=== PATIENT | female | born 1970 | race Two or more races ===

== ENCOUNTER 2016-12-25 00:56 | Observation (INO) | payer SELFPAY ==
--- NOTE | 2016-12-25 01:23 | CPEKG ---
Heart Rate: 86 RR Interval: 698 P-R Interval: 160 QRSD Interval: 86 QT Interval: 368 QTC Interval: 440 P [place]: 22 QRS [place]: 30 T Wave [place]: -22 EKG Severity - ABNORMAL ECG - EKG Impression: SINUS RHYTHM EKG Impression: PROBABLE INFERIOR INFARCT, AGE INDETERMINATE Electronically Signed By: Karine Tiwari 25-Dec-2016 08:19:37
[2016-12-25] MEDS ORDERED: ASPIRIN 81 MG CHEWABLE TAB PO ONE ×2 (01:42→02:15)
--- NOTE | 2016-12-25 01:45 | EDPHY ---
H & P Stated Complaint: 2 DAYS TROUBLE BREATHING Time Seen by Provider: 12/25/16 01:17 HPI/ROS: Kyrgyz language line head waitress used HPI The patient presents with shortness of breath which began last night and has caused her some difficulty with sleeping. It is been fairly constant since it began more than 24 hours ago. She feels that she can't catch her breath. This is associated with general dizziness which she describes as lightheadedness and palpitations. She does describe epigastric pain without any hailey chest pain which is achy and moderate. She took her blood pressure medication which helped her symptoms a little bit, however they have persisted. She had a similar episode in August of 2016 which got better on its own while she was in [place]. She is also complaining of insomnia. REVIEW OF SYSTEMS Constitutional: No fever, no chills. Eyes: No discharge. ENT: No sore throat. Cardiovascular: See HPI Respiratory: No cough, no shortness of breath. Gastrointestinal: No abdominal pain, no vomiting. Genitourinary: No hematuria. Musculoskeletal: No back pain. Skin: No rashes. Neurological: No headache. PMHx: Hypertension, followed at [facility] Hx: No alcohol use PHYSICAL General Appearance: Alert, no distress Eyes: Pupils equal and round no pallor or injection ENT, Mouth: Mucous membranes moist Respiratory: There are no retractions, lungs are clear to auscultation Cardiovascular: Regular rate and rhythm Gastrointestinal: Abdomen is soft and non-tender, no masses, bowel sounds normal Neurological: A&O, moves all extremities Skin: Warm and dry, no rashes Musculoskeletal: Neck is supple non tender Extremities: symmetrical, full range of motion Psychiatric: Patient is oriented X 3, there is no agitation Source: Patient Exam Limitations: No limitations - Medical/Surgical History Hx Asthma: No Hx Chronic Respiratory Disease: No Hx Diabetes: No Hx Cardiac Disease: No Hx Renal Disease: No Hx Cirrhosis: No Hx Alcoholism: No Hx HIV/AIDS: No Hx Splenectomy or Spleen Trauma: No Other PMH: htn. c section - Social History Smoking Status: Never smoked Constitutional: Initial Vital Signs Temperature (C) 37.0 C 12/25/16 01:00 Heart Rate 88 12/25/16 01:00 Respiratory Rate 24 H 12/25/16 01:00 Blood Pressure 200/107 H 12/25/16 01:00 O2 Sat (%) 99 12/25/16 01:00 O2 Delivery Mode Nasal Cannula O2 (L/minute) 2 Allergies/Adverse Reactions: No Known Allergies Allergy (Verified 12/25/16 01:07) Home Medications: Medication Instructions Recorded Lisinopril 12/25/16 Medical Decision Making - Diagnostics EKG Interpretation: EKG: Complete interpretation has been separately recorded in the [email or web address] archive. Summary impression: Normal sinus rhythm, Q-waves in lead 3, no ST segment changes Imaging: Chest x-ray two views shows no acute findings, interpreted by me, radiology interpretation is pending. ED Course/Re-evaluation: The patient was monitored in the emergency room with no events on telemetry. Her symptoms mostly resolved here with mild residual shortness of breath. Her EKG showed Q-waves in 3, was otherwise normal with no ST segment changes. Her troponin was slightly elevated at 0.04. She was given a dose of aspirin. Because of this, I plan to admit her to the hospital for repeat troponin and further monitoring. I have discussed the case with the hospitalist Dr. Merrill and I have ordered her a bed in the PCU. Differential Diagnosis: This is a 46-year-old female with known hypertension who presents from home with about 1 day of shortness of breath associated with epigastric abdominal pain, palpitations and dizziness. On exam, she is hypertensive and the remainder of her exam is unremarkable. Differential diagnosis includes ACS, gastritis, GERD, less likely aortic dissection given no back pain. Less likely pulmonary embolism given normal oxygen saturation and no tachycardia with no risk factors. - Data Points Laboratory Results: Laboratory Results 12/25/16 01:28 12/25/16 01:28 12/25/16 01:28 WBC 8.83 10^3/uL (3.80-9.50) RBC 4.77 10^6/uL (4.18-5.33) Hgb 13.7 g/dL (12.6-16.3) Hct 40.9 % (38.0-47.0) MCV 85.7 fL (81.5-99.8) MCH 28.7 pg (27.9-34.1) MCHC 33.5 g/dL (32.4-36.7) RDW 13.5 % (11.5-15.2) Plt Count 306 10^3/uL (150-400) MPV 10.1 fL (8.7-11.7) Neut % (Auto) 42.1 % (39.3-74.2) Lymph % (Auto) 47.0 H % (15.0-45.0) [place] % (Auto) 7.1 % (4.5-13.0) Eos % (Auto) 3.1 % (0.6-7.6) Baso % (Auto) 0.6 % (0.3-1.7) Nucleat RBC Rel Count 0.0 % (0.0-0.2) Absolute Neuts (auto) 3.72 10^3/uL (1.70-6.50) Absolute Lymphs (auto) 4.15 H 10^3/uL (1.00-3.00) Absolute Monos (auto) 0.63 10^3/uL (0.30-0.80) Absolute Eos (auto) 0.27 10^3/uL (0.03-0.40) Absolute Basos (auto) 0.05 10^3/uL (0.02-0.10) Absolute Nucleated RBC 0.00 10^3/uL (0-0.01) Immature Gran % 0.1 % (0.0-1.1) Immature Gran # 0.01 10^3/uL (0.00-0.10) Sodium 141 mEq/L (134-144) Potassium 3.6 mEq/L (3.5-5.2) Chloride 109 mEq/L (97-110) Carbon Dioxide 19 L mEq/l (22-31) Anion Gap 13 mEq/L (8-16) BUN 11 mg/dL (7-23) Creatinine 0.8 mg/dL (0.6-1.0) Estimated GFR > 60 Glucose 97 mg/dL (70-100) Calcium 9.8 mg/dL (8.5-10.4) Total Bilirubin 0.3 mg/dL (0.1-1.4) Conjugated Bilirubin 0.3 mg/dL (0.0-0.5) Unconjugated Bilirubin 0.0 mg/dL (0.0-1.1) AST 27 IU/L (14-46) ALT 31 IU/L (9-52) Alkaline Phosphatase 89 IU/L (38-126) Troponin I 0.046 H ng/mL (0-0.034) Total Protein 7.5 g/dL (6.3-8.2) Albumin 4.1 g/dL (3.5-5.0) Lipase 112.0 IU/L (23-300) Medications Given: Discontinued Medications Aspirin (Aspirin) 324 mg PO EDNOW ONE Stop: 12/25/16 01:43 Last Admin: 12/25/16 01:51 Dose: 324 mg Aspirin (Aspirin) 324 mg PO EDNOW ONE Stop: 12/25/16 02:16 Last Admin: 12/25/16 02:25 Dose: Not Given Departure - Departure Disposition: [facility] Inpatient Acute Clinical Impression: Shortness of breath, Elevated troponin level Hypertension Qualifiers: Hypertension type: essential hypertension Qualifier Code: (I10) Essential ( primary) hypertension Condition: Fair
[2016-12-25 01:46] LABS: % IMMATURE GRANULYOCYTES 0.1 % (0.0-1.1); ABSOLUTE IMMATURE GRANULOCYTES 0.01 10^3/uL (0.00-0.10); ADD DIFF? NO; ADD MORPH? NO; ADD SCAN? NO; ATYPICAL LYMPHOCYTE FLAG 0 (0-99); FRAGMENT RBC FLAG 0 (0-99); HEMATOCRIT 40.9 % (38.0-47.0); HEMOGLOBIN 13.7 g/dL (12.6-16.3); LEFT SHIFT FLG 0 (0-99); LIPEMIA HEMOLYSIS FLAG 80 (0-99); MEAN CELL HEMOGLOBIN 28.7 pg (27.9-34.1); MEAN CELL HEMOGLOBIN CONCENTR. 33.5 g/dL (32.4-36.7); MEAN CELL VOLUME 85.7 fL (81.5-99.8); MEAN PLATELET VOLUME 10.1 fL (8.7-11.7); PLATELET CLUMPS FLAG 50 (0-99); PLATELET COUNT 306 10^3/uL (150-400); RED BLOOD CELL COUNT 4.77 10^6/uL (4.18-5.33); RED CELL DISTRIBUTION WIDTH 13.5 % (11.5-15.2)
[2016-12-25 01:54] LABS: ALANINE AMINOTRANSFERASE 31 IU/L (9-52); ALBUMIN 4.1 g/dL (3.5-5.0); ALKALINE PHOSPHATASE 89 IU/L (38-126); ANION GAP 13 mEq/L (8-16); ASPARTATE AMINOTRANSFERASE 27 IU/L (14-46); BILIRUBIN,TOTAL 0.3 mg/dL (0.1-1.4); BILIRUBIN-CONJUGATED 0.3 mg/dL (0.0-0.5); CALCIUM 9.8 mg/dL (8.5-10.4); CARBON DIOXIDE 19 mEq/l (22-31); CHLORIDE 109 mEq/L (97-110); CREATININE 0.8 mg/dL (0.6-1.0); GLOMERULAR FILTRATION RATE > 60; GLUCOSE 97 mg/dL (70-100); POTASSIUM 3.6 mEq/L (3.5-5.2); SODIUM 141 mEq/L (134-144); TOTAL PROTEIN 7.5 g/dL (6.3-8.2)
[2016-12-25 02:08] LABS: TROPONIN I 0.046 ng/mL (0-0.034)
[2016-12-25] MEDS ORDERED: HYDROCODONE/APAP 5/325 TAB PO PRN (03:36)
[2016-12-25] MEDS ORDERED: ACETAMINOPHEN 325 MG TAB PO PRN (03:36)
[2016-12-25] MEDS ORDERED: ONDANSETRON DISINTEGRATING 4 MG TAB PO PRN (03:36)
[2016-12-25] MEDS ORDERED: ONDANSETRON 4 MG/2 ML VIAL IVP PRN (03:36)
[2016-12-25] MEDS ORDERED: LORazepam 0.5 MG TAB PO PRN (03:36)
[2016-12-25] MEDS ORDERED: NITROGLYCERIN 0.4 MG BTL SL PRN (03:40)
[2016-12-25 04:05] LABS: COLOR PALE YELLOW; LEUKOCYTE ESTERASE,URINE NEGATIVE (NEGATIVE); NITRITE,URINE NEGATIVE (NEGATIVE)
[2016-12-25 04:18] LABS: BACTERIA TRACE /hpf (NONE SEEN)
[2016-12-25 04:32] LABS: WBC,URINE NONE SEEN /hpf (0-3)
--- NOTE | 2016-12-25 06:02 | PDGENHP ---
History and Physical - Chief Complaint chest pain - History of Present Illness Patient is a 46-year-old female with history of hypertension, anxiety disorder , insomnia presents to the ED complaining left-sided chest pressure. Patient states symptoms started this evening after dinner just prior to going to bed when she began to feel dizziness. dizziness was accompanied by nausea, diaphoresis and also left-sided chest pressure that radiated to the left shoulder. Patient attempted to lie down and go to sleep however symptoms persisted so she decided to come to the ED. She reports having this constellation of symptoms once before in 07/2016 when she was visiting family in [place]. At that time she was evaluated in the ER, was told she was not having a heart attack, but was recommended to get a stress test, which was not yet done. Currently she denies any recent fevers, chills, cough, shortness of breath, vomiting, diarrhea, dysuria. She does report orthopnea, describes insomnia due to anxiety when lying flat. On arrival to the ED patient was afebrile hemodynamically stable. Labs revealed normal CBC and BMP, however troponin was indeterminately elevated. EKG did not reveal any obvious ischemic changes. She was given aspirin and admitted to the hospital service for further management. History Information - Allergies/Home Medication List Allergies/Adverse Reactions: No Known Allergies Allergy (Verified 12/25/16 01:07) Home Medications: Lisinopril 12/25/16 [Last Taken Unknown] I have personally reviewed and updated: family history, medical history, social history, surgical history - Past Medical History Additional medical history: Hypertension. generalized anxiety. insomnia - Surgical History Additional surgical history: C sections - Family History Additional family history: M: HTN - Social History Smoking Status: Never smoked Alcohol Use: None Drug Use: None Additional social history: Patient is originally from [place], lives in [place] with her family. Review of Systems ROS: 10pt was reviewed & negative except for what was stated in HPI & below Physical Exam Temp Pulse Resp BP Pulse Ox 37.2 C 80 17 141/86 H 95 12/25/16 03:58 12/25/16 04:29 12/25/16 03:58 12/25/16 04:29 12/25/16 04:29 O2 (L/minute) 2 Constitutional: no apparent distress, appears nourished, not in pain, obese Eyes: PERRL, anicteric sclera, EOMI Ears, Nose, Mouth, Throat: moist mucous membranes, hearing normal, ears appear normal, no oral mucosal ulcers Cardiovascular: regular rate and rhythym, no murmur, rub, or gallop, pulses symmetric bilaterally, No JVD, No edema Peripheral Pulses: 2+: dorsalis-pedis (R), dorsalis-pedis (L) Respiratory: no respiratory distress, no rales or rhonchi, clear to auscultation Gastrointestinal: normoactive bowel sounds, soft, non-tender abdomen, no palpable masses, No guarding, No rebound, No distension Genitourinary: no bladder fullness, no bladder tenderness Skin: warm, normal color, no rashes or abrasions, no fluctuance, No mottled Musculoskeletal: full muscle strength, no muscle tenderness, normal joint ROM, no joint effusions Neurologic: AAOx3, sensation intact bilaterally, CN II-XII Intact, No weakness, No numbness Psychiatric: interacting appropriately, not anxious, not encephalopathic, thought process linear Lab Data & Imaging Review 12/25/16 01:28 12/25/16 01:28 WBC 8.83 10^3/uL (3.80-9.50) 12/25/16 01:28 RBC 4.77 10^6/uL (4.18-5.33) 12/25/16 01:28 Hgb 13.7 g/dL (12.6-16.3) 12/25/16 01:28 Hct 40.9 % (38.0-47.0) 12/25/16 01:28 MCV 85.7 fL (81.5-99.8) 12/25/16 01:28 MCH 28.7 pg (27.9-34.1) 12/25/16 01:28 MCHC 33.5 g/dL (32.4-36.7) 12/25/16 01:28 RDW 13.5 % (11.5-15.2) 12/25/16 01:28 Plt Count 306 10^3/uL (150-400) 12/25/16 01:28 MPV 10.1 fL (8.7-11.7) 12/25/16 01: Neut % (Auto) 42.1 % (39.3-74.2) 12/25/16 01:28 Lymph % (Auto) 47.0 % (15.0-45.0) H 12/25/16 01:28 [place] % (Auto) 7.1 % (4.5-13.0) 12/25/16 01:28 Eos % (Auto) 3.1 % (0.6-7.6) 12/25/16 01:28 Baso % (Auto) 0.6 % (0.3-1.7) 12/25/16 01:28 Nucleat RBC Rel Count 0.0 % (0.0-0.2) 12/25/16 01:28 Absolute Neuts (auto) 3.72 10^3/uL (1.70-6.50) 12/25/16 01:28 Absolute Lymphs (auto) 4.15 10^3/uL (1.00-3.00) H 12/25/16 01:28 Absolute Monos (auto) 0.63 10^3/uL (0.30-0.80) 12/25/16 01:28 Absolute Eos (auto) 0.27 10^3/uL (0.03-0.40) 12/25/16 01:28 Absolute Basos (auto) 0.05 10^3/uL (0.02-0.10) 12/25/16 01:28 Absolute Nucleated RBC 0.00 10^3/uL (0-0.01) 12/25/16 01:28 Immature Gran % 0.1 % (0.0-1.1) 12/25/16 01:28 Immature Gran # 0.01 10^3/uL (0.00-0.10) 12/25/16 01:28 Sodium 141 mEq/L (134-144) 12/25/16 01:28 Potassium 3.6 mEq/L (3.5-5.2) 12/25/16 01:28 Chloride 109 mEq/L (97-110) 12/25/16 01:28 Carbon Dioxide 19 mEq/l (22-31) L 12/25/16 01:28 Anion Gap 13 mEq/L (8-16) 12/25/16 01:28 BUN 11 mg/dL (7-23) 12/25/16 01:28 Creatinine 0.8 mg/dL (0.6-1.0) 12/25/16 01:28 Estimated GFR > 60 12/25/16 01:28 Glucose 97 mg/dL (70-100) 12/25/16 01:28 Calcium 9.8 mg/dL (8.5-10.4) 12/25/16 01:28 Total Bilirubin 0.3 mg/dL (0.1-1.4) 12/25/16 01:28 Conjugated Bilirubin 0.3 mg/dL (0.0-0.5) 12/25/16 01:28 Unconjugated Bilirubin 0.0 mg/dL (0.0-1.1) 12/25/16 01:28 AST 27 IU/L (14-46) 12/25/16 01:28 ALT 31 IU/L (9-52) 12/25/16 01:28 Alkaline Phosphatase 89 IU/L (38-126) 12/25/16 01:28 Troponin I 0.046 ng/mL (0-0.034) H 12/25/16 01:28 Total Protein 7.5 g/dL (6.3-8.2) 12/25/16 01:28 Albumin 4.1 g/dL (3.5-5.0) 12/25/16 01:28 Lipase 112.0 IU/L (23-300) 12/25/16 01:28 Urine Color PALE YELLOW 12/25/16 03:45 Urine Appearance CLEAR 12/25/16 03:45 Urine pH 5.0 (5.0-7.5) 12/25/16 03:45 Ur Specific [place] 1.003 (1.002-1.030) 12/25/16 03:45 Urine Protein NEGATIVE (NEGATIVE) 12/25/16 03:45 Urine Ketones NEGATIVE (NEGATIVE) 12/25/16 03:45 Urine Blood 1+ (NEGATIVE) H 12/25/16 03:45 Urine Nitrate NEGATIVE (NEGATIVE) 12/25/16 03:45 Urine Bilirubin NEGATIVE (NEGATIVE) 12/25/16 03:45 Urine Urobilinogen NEGATIVE EU (0.2-1.0) 12/25/16 03:45 Ur Leukocyte Esterase NEGATIVE (NEGATIVE) 12/25/16 03:45 Urine RBC 1-3 /hpf (0-3) 12/25/16 03:45 Urine WBC NONE SEEN /hpf (0-3) 12/25/16 03:45 Ur Epithelial Cells TRACE /lpf (NONE-1+) 12/25/16 03:45 Urine Bacteria TRACE /hpf (NONE SEEN) H 12/25/16 03:45 Hyaline Casts 1-5 /lpf (0-1) 12/25/16 03:45 Urine Glucose NEGATIVE (NEGATIVE) 12/25/16 03:45 Visualized and Interpreted Chest x-ray results: Yes Chest X-Ray results: no infiltrate, normal Visualized and Interpreted EKG results: Yes EKG Interpretation: Positive for: normal sinsus rhythm (inferior q and twi in III, aVF) Assessment & Plan Assessment: patient is a 46-year-old female with history of obesity, hypertension who presents to the ED complaining of left-sided chest pain associated with nausea and diaphoresis. ED evaluation reveals indeterminately elevated troponin, normal EKG. Plan: # chest pain Patient's cardiac risk factors include obesity, longstanding hypertension. Initial troponin mildly elevated and EKG with nonspecific inferior changes. on my evaluation patient was chest pain-free. Continue to trend troponin, serial EKGs and check TTE. If no obvious ischemic event, will obtain stress test. Cont aspirin daily, consider initiating b-nargis. # chronic hypertension BP elevated on presentation, will confirm and continue home meds. # dispo: admit as observation status for chest pain evaluation # gen: NPO for possible stress test DVT ppx: lovenox Full code
[2016-12-25 06:26] LABS: CHOLESTEROL 194 mg/dL (140-200); CHOLESTEROL/HDL RATIO 4.51 RATIO (1.00-4.44); HIGH DENSITY LIPOPROTEIN 43 mg/dL (40-95); LDL/HDL RATIO 2.98 RATIO (1.00-3.22); LOW DENSITY LIPOPROTEIN 128 mg/dL (70-100); NON-HIGH DENSITY LIPOPROTEIN 151 mg/dL (90-129); TRIGLYCERIDE 116 mg/dL (35-135); VERY LOW DENSITY LIPOPROTEINS 23 mg/dL (8-25)
[2016-12-25 06:38] LABS: CREATINE KINASE-MB FRACTION 0.58 ng/mL (0-3.19); TROPONIN I 0.042 ng/mL (0-0.034)
--- NOTE | 2016-12-25 08:33 | DX ---
Chest, PA and Lateral History: Chest pressure and dyspnea Comparison: CT abdomen and pelvis December 25, 2010 Findings: A round 1.4 cm calcification is present in the right upper quadrant and likely represents a gallstone. This was not present on CT scan December 25, 2010. Lungs are clear, without infiltrate or consolidation. Heart size and pulmonary vascularity are normal. There is no adenopathy or mass lesio n. There is no pleural effusion or pneumothorax. Bones are unremarkable for age. Oxygen tubing and EK G lead overlie the chest. Impression: 1. Normal chest. New cholelithiasis. 2. Previously demonstrated bilateral nephrolithiasis is not visible on this exam. Results discussed with Dr. Mcgovern at 8:29 AM
[2016-12-25] MEDS ORDERED: ENOXAPARIN 40 MG/0.4 ML SYR SC SCH (09:00)
[2016-12-25] MEDS ORDERED: ASPIRIN EC 81 MG TAB PO SCH (09:00)
[2016-12-25] MEDS ORDERED: REGADENOSON 0.4 MG/5 ML SYR IVP ONE (11:37)
--- NOTE | 2016-12-25 12:58 | CPR ---
[f rep st] NONINVASIVE CARDIAC PROCEDURE REPORT PROCEDURE: Exercise treadmill testing of exercise treadmill myocardial perfusion imaging study. INDICATION FOR PROCEDURE: Chest pressure, abnormal electrocardiogram. PRE: After obtaining informed consent, with Hungarian-speaking defensive driving instructor, patient placed on electrocardiogram. Initial EKG shows sinus rhythm with inverted T-waves in inferolateral leads. Patient denies any chest pain or shortness of breath at this time. Initial blood pressure 146/96. Patient's saturation 94% on room air. Patient denies symptoms suggesting of ischemia. STRESS: Patient was placed on exercise treadmill following standard Bassam protocol with the following findings: 1. Patient exercised for 5 minutes. 2. 6.4 METS. 3. She attained a heart rate of 169 beats per minute, which was 98% of her MPHR. 4. No significant ST shifts suggesting of ischemia at peak exercise. 5. SpO2 greater than 90% throughout the procedure. 6. BP response, rest 146/96, peak 174/100. 7. Patient noted to have occasional premature ventricular contraction during stress, but no other malignant arrhythmias. 8. Test was stopped due to maximum effort. 9. Chou treadmill score of 5, placing patient in low risk category. RECOVERY: Patient remained in recovery for 5 minutes, no further premature ventricular contractions happening, and she denied of any symptoms, EKG returned to baseline, final blood pressure was 140/100, back to baseline pressure. Vital signs are stable. Patient taken to Nuclear Medicine for post stress MPI imaging. IMPRESSION: A 46-year-old female reporting chest pressure with abnormal electrocardiogram, undergoing ETT/MPI study for further evaluation of ischemia, the patient with mildly poor exercise effort, normally able to go 5 minutes on treadmill. Denied chest pressure, and had no significant ST shift at peak exercise. The patient noted to be mildly hypertensive, diastolic throughout the testing. Vital signs stable, MPI results pending. Question diastolic dysfunction. /[id number]/MODL MTDD
--- NOTE | 2016-12-25 12:58 | NM ---
Nuclear Medicine Myocardial Perfusion Stress and Rest Imaging History: Chest pain. Technique: Stress imaging performed with the intravenous administration of 25.9 mCi of technetium 99 m labeled sestamibi after the patient was exercised to stage I exercise with a peak heart rate of 168 bpm, which is 98% of maximum predicted. Images are reviewed on the independent nuclear medicine work station, computer analysis is performed. Findings: The left ventricular ejection fraction is 72 %. Stress imaging does not demonstrate a d efect to suggest ischemia or infarct. No focal wall motion abnormalities. Impression: 1. Normal left ventricular ejection fraction of 72 %. 2. No focal wall motion abnormalities. 3. No evidence for ischemia or infarct. Results called to Dr. Jim Rush at 12:54 PM.
--- NOTE | 2016-12-25 13:43 | ECHO ---
[id number] + + [address] : : [place] [id number] : : [phone] + + Adult Echocardiographic Report + + :Name: Dale BRARETT Date: 12/25/2016 09:21 AM BP: 136/77 mmHg : : Hospital Admission Number: [id number] : :: 1970 Gender: Female Height: 60 in : :Age: 46 yrs Race: [facility] Weight: 170 lb : :Reason For Study: r/o cardiomyopathy : : BSA: 1.7 meters2: :History: chest pain orthopnea htn : + + MMode/2D Measurements & Calculations IVSd: 0.76 cm RVDd: 2.8 cm FS: 37.8 % Ao root diam: LVPWd: 0.77 cm LVIDd: 4.3 cm EDV(Teich): 2.8 cm LVIDs: 2.7 cm 84.1 ml ESV(Teich): 26.8 ml EF(Teich): 68.2 % LVLd ap4: 8.9 cm SV(MOD-sp4): EDV(MOD-sp4): 103.0 ml 135.0 ml LVLs ap4: 7.5 cm ESV(MOD-sp4): 32.0 ml EF(MOD-sp4): 76.3 % Normal Measurement Values: + + :LVIDd (3.5-5.7cm) IVSd (0.6-1.1cm) LVPWd (0.6-1.1cm) Aortic Root (2.0-3.7cm)Left Atrium (1.5-4.0cm): :LV Vol(d) (76-115ml) LV Vol(s) (29-48ml) Ejec Fraction (50-65%)PV James (0.6- 1.2m/s) TV James (0.4-1.0m/s) : :MV E James (0.8-1.0m/s)MV A James (0.3-1.0m/s)LVOT James (0.7-1.2m/s) Asc Ao Jamse ( 0.9-1.8m/s) : + + Doppler Measurements & Calculations MV E max james: Ao V2 max: LV V1 max: PA V2 max: 64.7 cm/sec 133.8 cm/sec 102.2 cm/sec 135.7 cm/sec MV A max james: Ao max PG: LV V1 max PG: PA max P.1 cm/sec 7.2 mmHg 4.2 mmHg 7.4 mmHg MV E/A: 0.60 MV dec time: 0.27 sec TR max james: 232.1 cm/sec TR max P.6 mmHg RAP systole: 5.0 mmHg RVSP(TR): 26.6 mmHg Left Ventricle The left ventricle is normal in size and function. There is normal left ventricular wall thickness. Ejection Fraction = 65-70%. Diastolic dysfunction is indeterminate. No regional wall motion abnormalities noted. Right Ventricle The right ventricle is normal in size and function. Atria The left atrial size is normal. Right atrial size is normal. Mitral Valve The mitral valve is normal in structure and function. There is no mitral valve stenosis. There is trace mitral regurgitation. Tricuspid Valve The tricuspid valve is normal in structure and function. There is no tricuspid stenosis. There is mild tricuspid regurgitation. Right ventricular systolic pressure is 27mmHg. Aortic Valve The aortic valve is normal in structure and function. There is no aortic stenosis. There is no aortic insufficiency. Pulmonic Valve The pulmonic valve is not well visualized. Great Vessels The aortic root is normal size. Pericardium/Pleural There is no pericardial effusion. Conclusion A two-dimensional transthoracic echocardiogram with M-mode and Doppler was performed. The left ventricle is normal in size and function. Ejection Fraction = 65-70%. There is trace mitral regurgitation. There is mild tricuspid regurgitation. Right ventricular systolic pressure is 27mmHg. The aortic valve is normal in structure and function. No prior echo Final Reading Physician: Dr Trinidad Norman electronically signed on 12/25/2016 01:41 PM Ordering Physician: Renae Merrill Performed By: Meghan Esquivel
[2016-12-25] MEDS ORDERED: IOPAMIDOL (ISOVUE 370) 100 ML BTL IV ONE (14:15)
--- NOTE | 2016-12-25 15:18 | CT ---
Chest CTA With IV Contrast , 2:36 PM History: Dyspnea, chest pain, normal stress sestamibi exam earlier. Comparison: Chest x-ray 1:25 AM Technique: Ultrafast ultrathin [address] obtained through the chest after bolus administrat ion of mL of Isovue 370 nonionic contrast without complication. Soft tissue and bone window evaluatio n is performed. Dose reduction techniques were utilized. CT Chest: Findings: There is no evidence of pneumonia, pleural effusion, mass or pneumothorax. Heart size is no rmal and there is no pericardial effusion. There is no calcified coronary artery atherosclerotic dise ase detected. There is a calcified gallstone in the gallbladder neck. There is no secondary evidence of cholecystitis. There is fatty infiltration of the liver with a 2.3 cm low-density lesion in the [place] bcapsular left lobe of the liver with Hounsfield units of 22. In December 2010 this lesion measured [address] Pulmonary Angiogram: Technique: Multiplanar and 3D reconstructions are reviewed on an independent 3D workstation. Findings: No filling defects or mural thickening is detected. Specifically, no evidence for pulmonary embolism. Right-sided heart chambers are not dilated and the interventricular septum has normal morp hology. There is no aortic aneurysm or dissection. Impression: No evidence for pulmonary embolic disease. 2. Enlarging low-density lesion in the left lobe of the liver with Hounsfield units higher than the t ypical simple cyst. Correlation with ultrasound is recommended. 3. Cholelithiasis. The gallbladder is incompletely included on this exam. Results discussed with Jim Rush at 3:16 PM General information for patients regarding this examination can be found at [email or web address]. If you have questions or comments about this report, please contact me at [phone] (hospital) or [phone] (cell).
--- NOTE | 2016-12-25 15:59 | PDDCSUM ---
Discharge Summary Discharge Summary: DISCHARGE SUMMARY FOLLOW-UP ITEMS: Liver and gallbladder ultrasound and possible HIDA scan to further investigate cholelithiasis and possible liver cyst DATE OF ADMISSION: 12/24/2016 DATE OF DISCHARGE: 12/25/2016 DISCHARGE DIAGNOSES: 1. Acute chest pain 2. Chronic hypertension 3. Sleep disorder 4. Suspected liver cyst 5. Cholelithiasis CONSULTATIONS: None PROCEDURES / IMAGING: CT angiogram of the chest demonstrating no pulmonary embolism, cholelithiasis without cholecystitis, liver cyst noted, normal nuclear medicine stress test, normal echocardiogram CHIEF COMPLAINT: Acute chest heaviness SUBJECTIVE: Patient reports that her chest heaviness has resolved, she feels anxious about her sleep PHYSICAL EXAM ON DISCHARGE: Systolic blood pressure is 130, heart rate 80, afebrile overnight, satting well on room air, good inspiratory and expiratory air movement bilaterally, regular rate and rhythm of heart, abdomen is soft nontender nondistended negative Madsen sign LABS ON DISCHARGE: Troponin 0.04, potassium 3.6, creatinine 0.8, LDL 128, urinalysis unremarkable, white blood cell count 8800, hemoglobin 13.7, liver panel unremarkable HOSPITAL COURSE BY PROBLEM: 1. Acute chest pain. Rule out for acute coronary syndrome with no ischemic changes on EKG and no significant troponin level elevation. She was ruled out for obstructive coronary disease with a normal nuclear medicine stress test. She was ruled out for pulmonary embolism with negative CT angiogram. It is suspected that her cause of chest discomfort is atypical and most likely secondary to anxiety, as the patient endorses a high level of anxiety and sleep deprivation in her life. This will be further discussed below. She does not require any further invasive cardiopulmonary testing. 2. Sleep disorder. Patient reports that she has not slept for years secondary to anxiety and stress in her life. She has not tried any pharmacologic therapy and I have recommended strongly that she follow [facility] with [facility] and discuss non pharmacologic strategies to improve her sleep. That being said, a trial of 100 mg trazodone at bedtime is reasonable and I'll provide that the patient at this time. 3. Cholelithiasis. Patient has a gallstone visualized on CT without any demonstrable cholecystitis. Patient reports that she has been told she has gallstones in the past and she has been seen for biliary colic symptoms. That being said, her liver panel is unremarkable and I do not believe that her presenting symptoms had anything to do with biliary colic as they were on the contralateral side and they were not related to oral intake of food. That said , the patient could undergo either gallbladder ultrasound or HIDA scan as an outpatient this can be arranged the [facility]. 4. Suspected liver cyst. Patient has what appears to be a liver cyst on CT imaging and ultrasound would be the recommended modality for further workup per our radiology department. This can be performed through the outpatient setting. 5. Chronic hypertension. Patient was advised to resume her lisinopril. DISCHARGE MEDICATIONS: Please see official discharge medication reconciliation sheet in chart , trazodone 100 mg at bedtime. DISCHARGE INSTRUCTIONS: Patient should follow [facility] with [facility] this week.
[2016-12-25 16:04] VITALS: BP 132/81; PULSE 85; RESP 18; TEMP 97.9; O2SAT 96
== END 2016-12-25 16:50 | disposition home or self-care (01) ==
LOC: F2W 03:48
PROVIDERS: ADMIT Internal Medicine; ATTEND Internal Medicine
DX: R07.89 Other chest pain (principal); I10 Essential (primary) hypertension; K80.20 Calculus of gallbladder without cholecystitis without obstruction; E66.9 Obesity, unspecified
CPT/HCPCS: A9500; G0378; J1650; J2785; Q9967

== ENCOUNTER → 2017-02-02 | Outpatient (CLI) | payer MEDICAID | LOC: FIMAGING 08:21 | PROVIDERS: ATTEND Nurse Practitioner Family | DX: K80.20 Calculus of gallbladder without cholecystitis without obstruction (principal); K76.89 Other specified diseases of liver ==

== ENCOUNTER → 2018-01-17 | Outpatient (CLI) | payer MEDICAID | LOC: FIMAGING 11:24 | PROVIDERS: ATTEND Nurse Practitioner Family | DX: R10.12 Left upper quadrant pain (principal); K82.8 Other specified diseases of gallbladder | CPT/HCPCS: 78227; A9537 ==

== ENCOUNTER 2018-08-18 06:08 | Day surgery (SDC) | payer MEDICAID ==
[2018-08-18] MEDS ORDERED: LR 1,000 ML IV ONE (06:19)
[2018-08-18] MEDS ORDERED: LIDOCAINE 1% 2 ML INJ ID PRN (06:19)
--- NOTE | 2018-08-18 06:59 | PDANEPAE ---
ANE Past Medical History - Cardiovascular History Hx Hypertension: Yes Hx Arrhythmias: No Hx Chest Pain: No Hx Coronary Artery / Peripheral Vascular Disease: No Hx CHF / Valvular Disease: No Hx Palpitations: No Cardiovascular History Comment: pcp monitors bp meds - Pulmonary History Hx COPD: No Hx Asthma/Reactive Airway Disease: No Hx Recent Upper Respiratory Infection: No Hx Oxygen in Use at Home: No Hx Sleep Apnea: No Sleep Apnea Screening Result - Last Documented: Negative - Neurologic History Hx Cerebrovascular Accident: No Hx Seizures: No Hx Dementia: No - Endocrine History Hx Diabetes: No - Renal History Hx Renal Disorders: Yes Renal History Comment: hx of uti's - Liver History Hx Hepatic Disorders: No - Neurological & Psychiatric Hx Hx Neurological and Psychiatric Disorders: Yes Neurological / Psychiatric History Comment: anxiety. "stress" on citalopram - Cancer History Hx Cancer: No - Congenital Disorder History Hx Congenital Disorders: No - GI History Hx Gastrointestinal Disorders: Yes Gastrointestinal History Comment: GALL STONE. reflux- on pantoprazole. occ loose stools - Other Health History Other Health History: wears glasses- broken currently. LOWER LT PARTIAL - Chronic Pain History Chronic Pain: Yes (RUQ) - Surgical History Prior Surgeries: EGD. c-sections ANE Review of Systems Review of Systems: - Exercise capacity METS (RN): 4 METS ANE Patient History - Allergies Allergies/Adverse Reactions: egg [eggs] Allergy (Verified 03/23/17 13:02) pollen extracts Allergy (Verified 03/23/17 13:02) - Home Medications Home Medications: Amlodipine Besylate DAILY 03/23/17 [Last Taken 08/17/18] LISINOPRIL/HYDROCHLOROTHIAZIDE DAILY 03/23/17 [Last Taken 08/18/18 05:30] Pantoprazole Sodium BID 03/23/17 [Last Taken 08/16/18] Cetirizine DAILY 08/17/18 [Last Taken 08/17/18] - NPO status NPO Since - Liquids (Date): 08/18/18 NPO Since - Liquids (Time): 05:30 NPO Since - Solids (Date): 08/17/18 NPO Since - Solids (Time): 21:00 - Smoking Hx Smoking Status: Never smoked - Family Anes Hx Family Hx Anesthesia Complications: none ANE Labs/Vital Signs - Labs Result Diagrams: 08/18/18 06:45 - Vital Signs Blood Pressure: 169/99 Heart Rate: 74 Respiratory Rate: 15 O2 Sat (%): 95 Height: 157.48 cm Weight: 83.915 kg ANE Physical Exam - Airway Mallampati Score: Class 2 Mouth exam: poor dentition - ASA Status ASA Status: II ANE Anesthesia Plan Anesthesia Plan: general endotracheal anesthesia
[2018-08-18] MEDS ORDERED: MIDAZOLAM 2 MG/2 ML VIAL ONE (07:03)
[2018-08-18] MEDS ORDERED: fentaNYL 100 MCG/2 ML INJ ONE ×2 (07:04→09:17)
[2018-08-18] MEDS ORDERED: BUPIVACAINE/EPI 0.5% 30 ML SDV ONE (07:04)
[2018-08-18] MEDS ORDERED: PROPOFOL 200 MG/20 ML VIAL ONE (07:05)
[2018-08-18] MEDS ORDERED: ONDANSETRON 4 MG/2 ML VIAL ONE (07:05)
[2018-08-18] MEDS ORDERED: ROCURONIUM 50 MG/5 ML VIAL ONE (07:05)
[2018-08-18] MEDS ORDERED: METOCLOPRAMIDE 10 MG/2 ML VIAL ONE (07:05)
--- NOTE | 2018-08-18 07:26 | POSTOPPROG ---
Post Op Note Date of Operation: 08/18/18 Surgeon: Rajeev Lockett Haulage Engine Operator: Marjan Gandhi Anesthesiologist: ady benites Anesthesia: GET(General Endotracheal) Pre-op Diagnosis: biliary colic Post-op Diagnosis: same Procedure: lap choly Findings: small duct Inf/Abcess present in the surg proc area at time of surgery?: No EBL: Minimal Specimen(s): gallbladder
--- NOTE | 2018-08-18 07:26 | PDHPUP ---
History & Physical Update H&P update statement: This history and physical update is based on an assessment of the patient which was completed after admission or registration (within 24 hours), but prior to the surgery/procedure. H&P update: H&P reviewed & patient examined, no change in patient's condition since H&P completed
[2018-08-18] MEDS ORDERED: KETOROLAC 30 MG/1 ML SDV ONE (07:41)
[2018-08-18] MEDS ORDERED: METOPROLOL TARTRATE 5 MG/5 ML INJ ONE (07:54)
[2018-08-18] MEDS ORDERED: SUGAMMADEX SODIUM 200 MG/2 ML VIAL IVP ONE (08:05)
[2018-08-18] MEDS ORDERED: HYDROCODONE/APAP 5/325 TAB PO PRN (08:12)
[2018-08-18] MEDS ORDERED: NALOXONE HCL 0.4 MG/ML INJ IVP PRN (08:25)
[2018-08-18] MEDS ORDERED: LR 500 ML IV PRN (08:25)
[2018-08-18] MEDS ORDERED: fentaNYL 100 MCG/2 ML INJ IVP PRN (08:25)
[2018-08-18] MEDS ORDERED: DEXAMETHASONE 4 MG/ML VIAL IVP PRN (08:25)
[2018-08-18] MEDS ORDERED: MEPERIDINE 25 MG/0.5 ML AMP IVP PRN (08:25)
[2018-08-18] MEDS ORDERED: PROMETHAZINE HCL 25 MG/ML INJ IVP PRN (08:25)
--- NOTE | 2018-08-18 08:26 | POSTANESTH ---
Post Anesthetic Evaluation Cardiovascular Status: Similar to Pre-Op Cond Respiratory Status: Normal, Stable Level of Consciousness/Mental Status: Can Participate in Eval Pain Control: Adequate, Prn Tx Ordered Nausea/Vomiting Control: Adequate, Prn Tx Ordered Complications Possibly Related to Anesthesia: None Noted
[2018-08-18] MEDS ORDERED: DEXAMETHASONE 4 MG/ML VIAL ONE (08:47)
--- NOTE | 2018-08-18 09:22 | GOP ---
DATE OF OPERATION: SURGEON: Rajeev Lockett MD WIRELESS SALES EXPERT: Marjan Gandhi PA-C. ANESTHESIA: General. ANESTHESIOLOGIST: Dr. Christine. PREOPERATIVE DIAGNOSIS: Biliary colic. POSTOPERATIVE DIAGNOSIS: Biliary colic. PROCEDURE PERFORMED: Laparoscopic cholecystectomy. FINDINGS: See below. INDICATIONS: 48-year-old female with recurrent biliary colic. She is undergoing a laparoscopic cholecystectomy at this time. Risks and benefits were explained of bleeding, infection, bile duct injury, retained stones, need for postoperative ERCP. All questions were answered. She desires to proceed. assistant professor of theater is standard and necessary and customary for the safe performance of this procedure. DESCRIPTION OF PROCEDURE: General anesthesia was induced. The abdomen was preinjected with 0.5% Marcaine with epinephrine. A vertical infraumbilical cutdown was created. A 10 mm trocar was placed under direct visualization. 3 additional 5 mm upper abdominal ports were inserted. The gallbladder was retracted cephalad. This was a chronically thickened structure. Both duct and artery were ircumferentially encompassed, confirming the critical view of safety. There was chronic periportal inflammatory changes. The duct was multiply clipped and divided with the ultrasonic dissector as was the artery. The gallbladder was peeled from the liver bed fossa and brought through the umbilical port site intact using EndoCatch pouch. Satisfactory hemostasis was assured. Trocars were removed under direct visualization. The infraumbilical midline fascia was closed with a running Vicryl suture. The wounds were closed with Dermabond. The patient was taken to the recovery room uneventfully. Copy requested to: [facility] [address] /[id number]/MODL MTDD
[2018-08-18 11:09] VITALS: BP 118/70
== END 2018-08-18 11:03 | disposition home or self-care (01) ==
LOC: FSGY 06:08
PROVIDERS: ATTEND Surgery
PROC: 0FT44ZZ Resection of Gallbladder, Percutaneous Endoscopic Approach (ICD-10-PCS; principal; 2018-08-18 07:30)
DX: K80.20 Calculus of gallbladder without cholecystitis without obstruction (principal); I10 Essential (primary) hypertension
CPT/HCPCS: J1100; J1885; J2250; J2405; J2704; J2765; J3010

== ENCOUNTER 2019-04-08 13:40 | Emergency (ER) | payer MEDICAID ==
--- NOTE | 2019-04-08 15:30 | EDPHY ---
H & P Time Seen by Provider: 04/08/19 14:58 HPI/ROS: HPI Multiple complaints. 48-year-old female by private vehicle with her daughter. She is from [place]. She has a history of anxiety disorder and insomnia. She presents to the emergency department with complaint of a burning sensation in her lower abdomen which comes up through her abdomen to the area of her heart and causes her heart to beat strongly and beat irregularly. She reports that she has had this for over a year now. She reports that has been somewhat worse today and associated with what she describes as a numbness over her entire body. She stated in triage that she had a gradual onset left-sided headache which she has had multiple times in the past. She describes this headache as being identical to the 1 she has had in the past. She describes it as associated with left eye tunnel vision. She reports that she has had this left eye tunnel vision with her left-sided headaches for the last month. She now states that this is not bothering her anymore and she denies headache or tunnel vision. She tells me she was diagnosed with encephalitis a month ago in [place]. All history of present illness, review of systems and physical exam obtained with medical technologist microbiology. ROS: Constitutional: No fever, no chills. No weakness. Eyes: No discharge. No changes in vision. ENT: No sore throat. No nasal congestion or rhinorrhea. Respiratory: No cough. No shortness of breath. Cardiac: No chest pain, no palpitations. Gastrointestinal: As above, no vomiting, no diarrhea. Genitourinary: No hematuria. No dysuria or increased frequency with urination. Musculoskeletal: No back pain. No neck pain. No myalgias or arthralgias. Skin: No rashes. Neurological: As above. No focal weakness or altered sensation. Past medical history: Hypertension. . As above. She [facility]. Anxiety disorder, insomnia. Social history: Nonsmoker. Denies alcohol use. Here with her daughter. Physical Exam: General Appearance: Alert, mildly anxious but not in distress. This patient is responding to questions appropriately and in full sentences. This patient appears well-hydrated and well-nourished. Eyes: Pupils equal and round no pallor or injection. No lid edema, erythema or injection. No nystagmus. No photophobia. ENT, Mouth: Mucous membranes are moist. The pharyngeal tissues are unremarkable. No edema or swelling. No asymmetry suggestive of abscess. No erythema or exudates. No cervical, submandibular, submental lymphadenopathy. Respiratory: There are no retractions, lungs are clear to auscultation with good air movement bilaterally. Cardiovascular: Regular rate and rhythm. No murmur appreciated. Gastrointestinal: Abdomen is soft and nontender, no masses, bowel sounds normal. No focal tenderness at McBurney's point. No Madsen sign. Neurological: Motor sensory function is grossly intact. Cranial nerves are normal. Gait is normal. Cerebellar function testing is normal. No speech disturbance. No disturbance in cognitive function. Skin: Warm and dry, no rashes. Musculoskeletal: Neck is supple and nontender. No pain on flexion of her neck. Extremities are symmetrical. All joints range without pain or impingement. Psychiatric: No agitation. No depression. Database: EKG: EKG time is to 20 8:00 p.m.; EKG shows a narrow complex normal sinus rhythm with a ventricular rate of 78. The MO, QRS, QT intervals are within normal limits. Q-wave noted in lead 3. This was noted on previous EKGs of hers as well. There are no ST-T wave changes indicative of ischemic or injury pattern. No evidence of right heart strain. Interpreted by me. Imaging: Procedures: Emergency department course: Triage vital signs reviewed. She was mildly ate tachypneic in triage and moderately hypertensive. She is afebrile. I feel that this is secondary to end diet he reaction. On my evaluation her vital signs at all normalized. Blood pressure was within normal limits. No tachycardia. No tachypnea. She presents with a mixed picture of complaints. And she has changed her story. As noted above, all encounter and interviewing with this patient was done by a medical technologist microbiology in the medical technologist microbiology even told me that she has completely changed her story. On physical exam a tonight appreciate anything concerning. No red flag suggestive of a CVA, MS exacerbation, acute surgical abdomen, and encephalitis or meningitis. I will check a urinalysis on her. EKG was obtained and reviewed by myself. My feeling is that she needs follow-up with possibly a neurologist as well as a psychiatrist. 4:20 p.m., the patient was re-evaluated, resting comfortably at this time. Her vital signs were reviewed and are normal. Repeat neurologic Assessment is nonfocal she is up and ambulatory with a normal gait. She currently does not have any complaints. With a medical technologist microbiology present I discussed results of her emergency department workup. As outlined above I do not feel that she has an emergent medical condition at this time. I discussed follow-up through her primary care physician and Neurology referral I also discussed visiting with a behavioral health specialist. She and her daughter in agreement with this plan. All of their questions were answered. Return to emergency department precautions were reviewed thoroughly with the 2 of them. The patient was discharged home in good condition with her daughter. Differential Diagnosis: The differential diagnosis on this patient includes but is not limited to anxiety reaction, psychosomatic symptoms. CVA, meningitis, encephalitis, MS exacerbation, Guillain-[place] syndrome, diverticulitis, appendicitis, ovarian torsion, other surgical etiology abdominal pain unlikely. This represents a partial list of diagnoses considered. These considerations are based on history , physical exam, past history, reassessment and diagnostic testing. Smoking Status: Never smoked Constitutional: Initial Vital Signs Temperature (C) 37.0 C 04/08/19 13:48 Heart Rate 86 04/08/19 13:48 Respiratory Rate 22 H 04/08/19 13:48 Blood Pressure 178/87 H 04/08/19 13:48 O2 Sat (%) 100 04/08/19 13:48 O2 Delivery Mode Room Air Allergies/Adverse Reactions: egg [eggs] Allergy (Verified 03/23/17 13:02) pollen extracts Allergy (Verified 03/23/17 13:02) Home Medications: Medication Instructions Recorded Amlodipine Besylate DAILY 03/23/17 LISINOPRIL/HYDROCHLOROTHIAZIDE DAILY 03/23/17 Pantoprazole Sodium BID 03/23/17 Medical Decision Making - Data Points Laboratory Results: 04/08/19 15:30 Urine Color PALE YELLOW Urine Appearance CLEAR Urine pH 7.0 (5.0-7.5) Ur Specific Protection 1.003 (1.002-1.030) Urine Protein NEGATIVE (NEGATIVE) Urine Ketones NEGATIVE (NEGATIVE) Urine Blood 1+ H (NEGATIVE) Urine Nitrate NEGATIVE (NEGATIVE) Urine Bilirubin NEGATIVE (NEGATIVE) Urine Urobilinogen NEGATIVE EU EU (0.2-1.0) Ur Leukocyte Esterase NEGATIVE (NEGATIVE) Urine RBC NONE SEEN /hpf /hpf (0-3) Urine WBC 1-3 /hpf /hpf (0-3) Ur Epithelial Cells TRACE /lpf /lpf (NONE-1+) Urine Glucose NEGATIVE (NEGATIVE) Medications Given: Discontinued Medications Diazepam (Valium) 5 mg PO EDNOW ONE Stop: 04/08/19 15:33 Last Admin: 04/08/19 15:41 Dose: 5 mg Departure - Departure Disposition: Home, Routine, Self-Care Clinical Impression: Palpitations, Anxiety reaction Condition: Good Instructions: Heart Palpitations (ED), Anxiety (ED) Additional Instructions: Read and follow provided instructions. Follow-up with your primary care physician at [facility] in 1-2 days for re -evaluation. I feel that you should be evaluated by a neurologist. I have given you a referral to our on-call neurologist. However, your primary care physician at [facility] and arrange a follow-up visit to a neurologist as well. I also feel that a visit with a behavioral health specialist may be beneficial to you. Your primary care physician at [facility] and arrange this. Return to the emergency department for fever, neck pain, persistent headache, nausea or vomiting, chest pain, difficulty breathing or other serious concerns. Alondra y siga las siguientes instrucciones provistas Seguimiento con [place] medico de cuidado primario en la [facility] en 1-2 pichardo para jeferson re-evaluacion. Yo siento que usted deberia ser evaluada por un neurologo. Le he dado jeferson referencia con nuestro Neurologo de [facility]. Sin embargo, [facility] medico de cuidado primario en la [facility] puede programar jeferson erica de seguimeinto con el neurologo tambien. Referrals: Kinza Tapia PA [Primary Care Provider] - As per Instructions Kevin Noonan MD [Medical Doctor] - As per Instructions Print Language: Ghanaian
[2019-04-08] MEDS ORDERED: DIAZEPAM 5 MG TAB PO ONE (15:32)
[2019-04-08 16:41] VITALS: BP 121/87
--- NOTE | 2019-04-08 18:46 | CPEKG ---
Test Reason : OPEN Blood Pressure : / mmHG Vent. Rate : 078 BPM Atrial Rate : 078 BPM P-R Int : 152 ms QRS Dur : 088 ms QT Int : 393 ms P-R-T Axes : 029 008 -01 degrees QTc Int : 448 ms Sinus rhythm Inferior infarct, old Confirmed by Edgar Townsend ([id number]) on 04/08/2019 6:45:31 PM Referred By: PHYSICIAN ED Confirmed By:Edgar Townsend
== END 2019-04-08 16:40 | disposition home or self-care (01) ==
DX: R00.2 Palpitations (principal); F41.1 Generalized anxiety disorder; I10 Essential (primary) hypertension

== ENCOUNTER → 2019-04-23 | Outpatient (CLI) | payer MEDICAID | LOC: FIMAGING 15:43 ==

== ENCOUNTER 2019-05-02 13:06 | Emergency (ER) | payer MEDICAID | END 2019-05-02 16:22 | disposition home or self-care (01) ==